=== PATIENT | male | born 1960 | race Caucasian/White ===

== ENCOUNTER 2020-10-16 16:19 | Inpatient (IN) | payer MEDICARE ==
[~2020-10-16] VITALS: Ht 165.1 cm; Wt 106.6 kg
[2020-10-16] MEDS ORDERED: MAGNESIUM HYDROXIDE 30 ML UDC PO PRN (17:00)
[2020-10-16] MEDS ORDERED: BLOOD SUGAR DIAGNOSTIC 1 EACH STRIP IN ONE (17:00)
[2020-10-16] MEDS ORDERED: TEMAZEPAM 7.5 MG CAPSULE PO PRN (17:00)
[2020-10-16] MEDS ORDERED: MAG HYDROX/AL HYDROX/SIMETH 30 ML UDC PO PRN (17:00)
[2020-10-16] MEDS ORDERED: LORAZEPAM 0.5 MG TABLET PO PRN (17:00)
[2020-10-16] MEDS ORDERED: ACETAMINOPHEN 325 MG TABLET PO PRN (17:00)
[2020-10-16] MEDS ORDERED: OLAN5TAB3 PO (17:07)
[2020-10-16] MEDS ORDERED: OLME40TA18 PO (17:07)
[2020-10-16] MEDS ORDERED: AMLO1TAB5 PO (17:07)
[2020-10-16] MEDS ORDERED: CLON1TAB12 PO (17:07)
[2020-10-16] MEDS ORDERED: METO-357 PO (17:07)
[2020-10-16] MEDS ORDERED: TAMS-12 PO (17:07)
[2020-10-16] MEDS ORDERED: GABA-532 PO (17:07)
[2020-10-16] MEDS ORDERED: EMPA25TA PO (17:07)
[2020-10-16] MEDS ORDERED: INSU100I26 SQ (17:07)
[2020-10-16] MEDS ORDERED: DULA1.5P SQ (17:07)
[2020-10-16] MEDS ORDERED: SPIR25TA6 PO (17:07)
[2020-10-16] MEDS ORDERED: GLIP10TA11 PO (17:07)
[2020-10-16] MEDS ORDERED: METF-442 PO (17:07)
[2020-10-16 17:33] VITALS: BP 113/64
--- NOTE | 2020-10-16 18:48 | NUR ---
Pt. arrived in the unit via a stretcher wheeled by ER staffs to the unit and placed on room 213 bed A. Pt. admitted on 5150 for DTS and GD. Pt. is alert/ oriented x3, contraband done, skin assessment and pictures taken and pt. signed the consent. Dr. Kent made aware of the admission and made orders. Will endorse to the incoming nurse for the completion of the admission.
--- NOTE | 2020-10-16 20:19 | NUR ---
ADMISSION NOTES: ADMITTED THIS 60Y/O MALE PATIENT DIRECT ADMIT FROM [facility] , ADMITTED TO GPS ON 5150 HOLD, PER HOLD GRAVELY DISABLE, DTS,UPON FACE TO FACE ASSESSMENT PATIENT IS A&O X ,2, 3 ,DISHELVED ,EASILY GETS AGITATED, DISORGNIZED, ,POOR HYGINE REFUSED TO TAKE SHOWER DENIES SI /HI AT THIS TIME, PT. IS POOR HISTORIAN, POOR INSIGHT ,POOR JUDGEMENT, PT. DENIES SI HI AT THIS TIME , BOTH MD AWARE AND NOTIFIED OF THE ADMISSION, BELONGINGS CONTRABAND WERE DONE , NURSING ASSESSMENT DONE ,PT. RIGHTS DISCUSS BY PRODUCT SPECIALIST , PROVIDE THE PT. WITH HANDBOOK, AND MEDICATIONS GUIDE, ENVIRONMENTAL SAFETY CHECK DONE, ENCOURAGED PT. VERBALIZED ANY FEELING CONCERN TO STAFF, ORIENT TO UNIT POLICY, NO ACUTE DISTRESS NOTED,VITAL SIGNS WNL ,DENIES ANY PAIN AT THIS TIME,WILL CONTINUE TO MONITOR FOR Q15 SAFETY AND BEHAVIOR.
[2020-10-16 20:23] VITALS: BP 132/72
[2020-10-16] MEDS ORDERED: DEXTROSE 50%-WATER 50 ML DISP.SYRIN IV PRN (22:00)
[2020-10-16] MEDS: BLOOD SUGAR DIAGNOSTIC 1 EACH STRIP IN SCH (22:25)
[2020-10-17 06:51] LABS: ALBUMIN 4.3 g/dL (3.4-5.0); BILIRUBIN,TOTAL 0.6 mg/dL (0.2-1.0); CALCIUM, SERUM 9.6 mg/dL (8.5-10.1); CREATININE 1.1 mg/dL (0.6-1.3); POTASSIUM 4.6 mmol/L (3.5-5.1); TOTAL PROTEIN, SERUM 7.6 g/dL (6.4-8.2)
[2020-10-17 06:52] LABS: CHOLESTEROL 85 mg/dL (<200); HDL CHOLESTEROL 25 mg/dL (40-60); LDL 46 mg/dL (0-99); TRIGLYCERIDES 94 mg/dL (30-150)
[2020-10-17 08:00] VITALS: BP 109/72
[2020-10-17] MEDS: BLOOD SUGAR DIAGNOSTIC 1 EACH STRIP IN SCH ×4 (08:13→22:12)
[2020-10-17] MEDS: Z GUARD REMEDY 2 OZ OINT TP SCH (08:56)
[2020-10-17] MEDS: SPIRONOLACTONE 25 MG TABLET PO SCH ×2 (08:58→17:40)
[2020-10-17] MEDS: ATORVASTATIN 40 MG TABLET PO SCH (08:59)
[2020-10-17] MEDS: METOPROLOL SUCCINATE 50 MG TAB.SR.24H PO SCH (08:59)
[2020-10-17] MEDS: GABAPENTIN 100 MG CAPSULE PO SCH ×3 (08:59→17:40)
[2020-10-17] MEDS: glipiZIDE 10 MG TABLET PO SCH ×2 (08:59→21:04)
[2020-10-17] MEDS: TAMSULOSIN 0.4 MG CAP.SR.24H PO SCH ×2 (08:59→17:40)
[2020-10-17] MEDS: AMLODIPINE BESYLATE 5 MG TABLET PO SCH (09:00)
[2020-10-17] MEDS: INSULIN GLARGINE, 100 UNIT/ML CARTRIDGE SQ SCH (10:50)
[2020-10-17 16:00] VITALS: BP 138/79
[2020-10-17] MEDS: risperiDONE 1 MG TABLET PO SCH ×2 (17:40→21:05)
[2020-10-17] MEDS: INSULIN REGULAR, HUMAN 100 UNIT/ML 3 ML VIAL SQ PRN (17:43)
[2020-10-17 20:04] VITALS: BP 100/60
[2020-10-17] MEDS: clonazePAM 0.5 MG TABLET PO SCH (21:04)
[2020-10-18] MEDS: BLOOD SUGAR DIAGNOSTIC 1 EACH STRIP IN SCH ×4 (07:44→21:21)
[2020-10-18 08:00] VITALS: BP 129/71
[2020-10-18] MEDS: ATORVASTATIN 40 MG TABLET PO SCH (08:44)
[2020-10-18] MEDS: GABAPENTIN 100 MG CAPSULE PO SCH ×3 (08:44→16:55)
[2020-10-18] MEDS: clonazePAM 0.5 MG TABLET PO SCH ×2 (08:44→20:58)
[2020-10-18] MEDS: Z GUARD REMEDY 2 OZ OINT TP SCH (08:44)
[2020-10-18] MEDS: risperiDONE 1 MG TABLET PO SCH ×2 (08:44→16:54)
[2020-10-18] MEDS: glipiZIDE 10 MG TABLET PO SCH ×2 (08:44→20:58)
[2020-10-18] MEDS: AMLODIPINE BESYLATE 5 MG TABLET PO SCH (08:45)
[2020-10-18] MEDS: TAMSULOSIN 0.4 MG CAP.SR.24H PO SCH ×2 (08:45→16:54)
[2020-10-18] MEDS: SPIRONOLACTONE 25 MG TABLET PO SCH ×2 (08:45→16:55)
[2020-10-18] MEDS: METOPROLOL SUCCINATE 50 MG TAB.SR.24H PO SCH (08:46)
[2020-10-18] MEDS: INSULIN GLARGINE, 100 UNIT/ML CARTRIDGE SQ SCH (08:47)
[2020-10-18 16:00] VITALS: BP 123/66
[2020-10-18] MEDS: Z GUARD REMEDY 2 OZ OINT TP PRN (19:46)
[2020-10-18 20:00] VITALS: BP 144/71
[2020-10-18] MEDS ORDERED: risperiDONE 1 MG TABLET PO SCH (21:00)
[2020-10-19] MEDS: BLOOD SUGAR DIAGNOSTIC 1 EACH STRIP IN SCH ×4 (07:18→21:20)
[2020-10-19] MEDS: INSULIN REGULAR, HUMAN 100 UNIT/ML 3 ML VIAL SQ PRN ×3 (07:41→21:44)
[2020-10-19 08:12] VITALS: BP 138/75
[2020-10-19] MEDS: TAMSULOSIN 0.4 MG CAP.SR.24H PO SCH ×2 (08:25→16:10)
[2020-10-19] MEDS: AMLODIPINE BESYLATE 5 MG TABLET PO SCH (08:26)
[2020-10-19] MEDS: glipiZIDE 10 MG TABLET PO SCH ×2 (08:26→21:19)
[2020-10-19] MEDS: METOPROLOL SUCCINATE 50 MG TAB.SR.24H PO SCH (08:26)
[2020-10-19] MEDS: clonazePAM 0.5 MG TABLET PO SCH ×2 (08:26→21:19)
[2020-10-19] MEDS: ATORVASTATIN 40 MG TABLET PO SCH (08:26)
[2020-10-19] MEDS: GABAPENTIN 100 MG CAPSULE PO SCH ×3 (08:26→16:10)
[2020-10-19] MEDS: risperiDONE 1 MG TABLET PO SCH ×2 (08:26→16:10)
[2020-10-19] MEDS: SPIRONOLACTONE 25 MG TABLET PO SCH ×2 (08:26→16:10)
[2020-10-19] MEDS: INSULIN GLARGINE, 100 UNIT/ML CARTRIDGE SQ SCH (08:37)
[2020-10-19] MEDS: Z GUARD REMEDY 2 OZ OINT TP SCH (08:37)
--- NOTE | 2020-10-19 09:00 | NUR ---
RN NOTE- PT QUIET THOUGH ANXIOUS AT TIMES, LOOSE ASSOCIATIONS, DENIES SI HI AT PRESENT, MED COMPLIANT NEEDS ATTENDED WITHDRAWN IN ROOM
--- NOTE | 2020-10-19 15:50 | NUR ---
Initial D/C Plan: The pt. comes from [facility] [[address] [facility] [address]; [phone]]. Per pt. he would like to return there once ready for discharge. Pt. stated he does not want any family involvement. SW will continue to collaborate with psychiatrist for safe & proper D/C planning.
--- NOTE | 2020-10-19 16:15 | NUR ---
No Point of Contact: Pt. stated he does not want any family involvement. Noted.
[2020-10-19 16:21] VITALS: BP 134/66
[2020-10-19 20:00] VITALS: BP 119/76
[2020-10-19] MEDS ORDERED: risperiDONE 1 MG TABLET PO SCH (21:00)
[2020-10-20] MEDS: BLOOD SUGAR DIAGNOSTIC 1 EACH STRIP IN SCH ×4 (07:19→21:20)
[2020-10-20 08:00] VITALS: BP 132/83
[2020-10-20] MEDS: glipiZIDE 10 MG TABLET PO SCH ×2 (08:34→21:16)
[2020-10-20] MEDS: risperiDONE 1 MG TABLET PO SCH ×3 (08:34→21:17)
[2020-10-20] MEDS: AMLODIPINE BESYLATE 5 MG TABLET PO SCH (08:34)
[2020-10-20] MEDS: TAMSULOSIN 0.4 MG CAP.SR.24H PO SCH ×2 (08:35→16:56)
[2020-10-20] MEDS: clonazePAM 0.5 MG TABLET PO SCH ×2 (08:35→21:17)
[2020-10-20] MEDS: METOPROLOL SUCCINATE 50 MG TAB.SR.24H PO SCH (08:35)
[2020-10-20] MEDS: SPIRONOLACTONE 25 MG TABLET PO SCH ×2 (08:35→16:56)
[2020-10-20] MEDS: GABAPENTIN 100 MG CAPSULE PO SCH ×3 (08:35→16:56)
[2020-10-20] MEDS: ATORVASTATIN 40 MG TABLET PO SCH (08:35)
[2020-10-20] MEDS: INSULIN REGULAR, HUMAN 100 UNIT/ML 3 ML VIAL SQ PRN ×3 (08:39→21:24)
[2020-10-20] MEDS: INSULIN GLARGINE, 100 UNIT/ML CARTRIDGE SQ SCH (08:40)
[2020-10-20] MEDS: Z GUARD REMEDY 2 OZ OINT TP SCH (08:43)
--- NOTE | 2020-10-20 09:00 | NUR ---
RN NOTE0- PT DISORGANIZED, PT HAS +AH, STATES 'I HEAR IT ALL' LAUGHING INAPPROPRIATELY, RESPONDING, , MED COMPLIANT NEEDS ATTENDED WITHDRAWN IN ROOM
--- NOTE | 2020-10-20 10:18 | NUR ---
WOUND CARE: PER RN, NO WOUND CONSULT NEEDED. CURRENT ANTONIO SCORE IS 21. WILL SEE PRN.
--- NOTE | 2020-10-20 14:06 | NUR ---
Probable Cause Hearing: Pt's 5250 has been upheld for grave disability.
[2020-10-20 16:00] VITALS: BP 146/75
--- NOTE | 2020-10-20 16:09 | NUR ---
RN NOTE- CALLED FAMILY REGARDING [employer]. STATED THEY WILL TRY TO BRING SUPPLY TO HOSPITAL.
[2020-10-20] MEDS: BENZTROPINE MESYLATE (1 MG) 1 MG TABLET PO SCH (16:56)
[2020-10-21] MEDS: BLOOD SUGAR DIAGNOSTIC 1 EACH STRIP IN SCH ×4 (07:28→21:59)
[2020-10-21] MEDS: INSULIN REGULAR, HUMAN 100 UNIT/ML 3 ML VIAL SQ PRN ×4 (07:31→21:30)
[2020-10-21] MEDS: risperiDONE 1 MG TABLET PO SCH ×3 (07:52→21:22)
[2020-10-21 08:00] VITALS: BP 125/75
[2020-10-21] MEDS: ATORVASTATIN 40 MG TABLET PO SCH (08:32)
[2020-10-21] MEDS: Z GUARD REMEDY 2 OZ OINT TP SCH (08:32)
[2020-10-21] MEDS: SPIRONOLACTONE 25 MG TABLET PO SCH ×2 (08:33→16:48)
[2020-10-21] MEDS: AMLODIPINE BESYLATE 5 MG TABLET PO SCH (08:33)
[2020-10-21] MEDS: GABAPENTIN 100 MG CAPSULE PO SCH ×3 (08:33→16:48)
[2020-10-21] MEDS: TAMSULOSIN 0.4 MG CAP.SR.24H PO SCH ×2 (08:33→16:48)
[2020-10-21] MEDS: METOPROLOL SUCCINATE 50 MG TAB.SR.24H PO SCH (08:34)
[2020-10-21] MEDS: BENZTROPINE MESYLATE (1 MG) 1 MG TABLET PO SCH ×2 (08:34→16:50)
[2020-10-21] MEDS: clonazePAM 0.5 MG TABLET PO SCH ×2 (08:35→21:22)
[2020-10-21] MEDS: glipiZIDE 10 MG TABLET PO SCH ×2 (08:35→21:23)
[2020-10-21] MEDS: INSULIN GLARGINE, 100 UNIT/ML CARTRIDGE SQ SCH (09:20)
--- NOTE | 2020-10-21 12:45 | NUR ---
D/C Planning: FLORECITA contacted [facility] [[address] [facility] [address]; [phone]] to confirm if the pt can return there upon D/C. Mae from the facility confirmed that the pt is able to return. SS will continue to f/u with this D/C plan.
[2020-10-21 16:00] VITALS: BP 137/79
--- NOTE | 2020-10-21 19:30 | NUR ---
GPS RN NOTES RECEIVED WALKING ON THE HALLWAYS WITH STEADY GAIT,ALERT,ORIENTED X2-3,ABLE TO VERBALIZED NEEDS,DENIES SI AND NO HEARING OF VOICES,MED COMPLIANT PER REPORT,WILL CONTINUE TO MONITOR BEHAVIOR
[2020-10-21 20:00] VITALS: BP 135/85
[2020-10-21 21:22] VITALS: BP 135/85
--- NOTE | 2020-10-21 21:23 | NUR ---
GPS RN NOTES SKYE MONTES WANTS SLEEP EARLY,RESTORIL 7.5MG PO GIVEN PER PATIENT REQUEST
--- NOTE | 2020-10-21 21:30 | NUR ---
GPS RN NOTES ACCU-CHECK BLOOD SUGAR CHECK 223,COVERED WITH HUMULIN R 4 UNITS PER MILD SLIDING SCALE.SNACKS PROVIDED AT BEDSIDE.
--- NOTE | 2020-10-22 00:30 | NUR ---
GPS RN NOTES SITTING ON CHAIR SLEEPING.WAS ASKED TO GO BACK TO BED BUT HE SASID LATER.
[2020-10-22 08:00] VITALS: BP 126/78
[2020-10-22] MEDS: BLOOD SUGAR DIAGNOSTIC 1 EACH STRIP IN SCH ×4 (08:19→22:05)
[2020-10-22] MEDS: INSULIN GLARGINE, 100 UNIT/ML CARTRIDGE SQ SCH (08:22)
[2020-10-22] MEDS: ATORVASTATIN 40 MG TABLET PO SCH (08:22)
[2020-10-22] MEDS: BENZTROPINE MESYLATE (1 MG) 1 MG TABLET PO SCH ×2 (08:23→16:45)
[2020-10-22] MEDS: AMLODIPINE BESYLATE 5 MG TABLET PO SCH (08:23)
[2020-10-22] MEDS: glipiZIDE 10 MG TABLET PO SCH ×2 (08:24→20:53)
[2020-10-22] MEDS: risperiDONE 1 MG TABLET PO SCH ×3 (08:24→20:53)
[2020-10-22] MEDS: METOPROLOL SUCCINATE 50 MG TAB.SR.24H PO SCH (08:25)
[2020-10-22] MEDS: TAMSULOSIN 0.4 MG CAP.SR.24H PO SCH ×2 (08:25→16:44)
[2020-10-22] MEDS: clonazePAM 0.5 MG TABLET PO SCH ×2 (08:25→20:53)
[2020-10-22] MEDS: GABAPENTIN 100 MG CAPSULE PO SCH ×3 (08:25→16:45)
[2020-10-22] MEDS: SPIRONOLACTONE 25 MG TABLET PO SCH ×2 (08:26→16:45)
[2020-10-22] MEDS: Z GUARD REMEDY 2 OZ OINT TP SCH (08:52)
[2020-10-22] MEDS: INSULIN REGULAR, HUMAN 100 UNIT/ML 3 ML VIAL SQ PRN ×4 (09:26→22:04)
[2020-10-22 16:00] VITALS: BP 145/76
--- NOTE | 2020-10-22 16:52 | NUR ---
GPS RN NOTE:RETURNED MED PULED KLONOPIN 0.5 MG AT THE WRONG TIME RETURNED 1 PILL 0.5 MG KLONOPIN Q 12 HR . WITNESS BY CHARGE NURSE JACQUES.
[2020-10-22 20:00] VITALS: BP 138/72
[2020-10-22] MEDS: Z GUARD REMEDY 2 OZ OINT TP PRN (22:06)
[2020-10-23 08:00] VITALS: BP 139/83
[2020-10-23] MEDS: BLOOD SUGAR DIAGNOSTIC 1 EACH STRIP IN SCH ×4 (08:08→21:43)
[2020-10-23] MEDS: BENZTROPINE MESYLATE (1 MG) 1 MG TABLET PO SCH ×2 (08:09→17:00)
[2020-10-23] MEDS: risperiDONE 1 MG TABLET PO SCH ×3 (08:09→20:49)
[2020-10-23] MEDS: TAMSULOSIN 0.4 MG CAP.SR.24H PO SCH ×2 (08:09→17:00)
[2020-10-23] MEDS: SPIRONOLACTONE 25 MG TABLET PO SCH ×2 (08:09→17:00)
[2020-10-23] MEDS: glipiZIDE 10 MG TABLET PO SCH ×2 (08:09→20:49)
[2020-10-23] MEDS: ATORVASTATIN 40 MG TABLET PO SCH (08:10)
[2020-10-23] MEDS: GABAPENTIN 100 MG CAPSULE PO SCH ×3 (08:10→17:05)
[2020-10-23] MEDS: METOPROLOL SUCCINATE 50 MG TAB.SR.24H PO SCH (08:10)
[2020-10-23] MEDS: AMLODIPINE BESYLATE 5 MG TABLET PO SCH (08:10)
[2020-10-23] MEDS: clonazePAM 0.5 MG TABLET PO SCH ×2 (08:13→20:48)
[2020-10-23] MEDS: Z GUARD REMEDY 2 OZ OINT TP SCH (08:19)
[2020-10-23] MEDS: INSULIN GLARGINE, 100 UNIT/ML CARTRIDGE SQ SCH (09:21)
[2020-10-23] MEDS: INSULIN REGULAR, HUMAN 100 UNIT/ML 3 ML VIAL SQ PRN ×4 (09:22→21:47)
--- NOTE | 2020-10-23 09:48 | NUR ---
RN OPENING NOTE RECEIVED PATIENT RESTING HIS ROOM, NO ACUTE DISTRESS NOTED. DISHELVED UNKEMPT,PARANOID HEARING VOICE WITHDRAWN, DENIES SI HI AT THIS TIME . NO VERBALIZATION OF THOUGHTS AND FEELINGS. COOPERTIVE, VERBALIZATION OF FEELINGS ENCOURAGED. MED COMPLIANT SAFETY PRECAUTIONS IN PLACE. WILL CONTINUE TO MONITOR
[2020-10-23 16:00] VITALS: BP 142/78
--- NOTE | 2020-10-23 18:05 | NUR ---
RN CLOSING NOTE PT RESTING IN BED COMFORTABLY. COOPERATIVE AND DEPRESSED. ANXIOUS IN PERIODS. AVH PRESENT. DENIES ANY SI/HI. MED COMPLIANT. SAFETY PRECAUTIONS IN PLACE. Q15 MINUTE CHECKS SIGNED. WILL GIVE REPORT TO NIGHT NURSE FOR LORAINE.
--- NOTE | 2020-10-23 18:17 | NUR ---
RN NOTE RECIEVED CALL FROM PT ELVIS GIBBS
[2020-10-23 20:33] VITALS: BP 119/66
[2020-10-24 08:00] VITALS: BP 138/71
[2020-10-24] MEDS: clonazePAM 0.5 MG TABLET PO SCH ×2 (08:34→21:00)
[2020-10-24] MEDS: BLOOD SUGAR DIAGNOSTIC 1 EACH STRIP IN SCH ×4 (08:34→21:49)
[2020-10-24] MEDS: AMLODIPINE BESYLATE 5 MG TABLET PO SCH (08:35)
[2020-10-24] MEDS: METOPROLOL SUCCINATE 50 MG TAB.SR.24H PO SCH (08:35)
[2020-10-24] MEDS: glipiZIDE 10 MG TABLET PO SCH ×2 (08:36→20:59)
[2020-10-24] MEDS: SPIRONOLACTONE 25 MG TABLET PO SCH ×2 (08:36→16:35)
[2020-10-24] MEDS: GABAPENTIN 100 MG CAPSULE PO SCH ×3 (08:36→16:35)
[2020-10-24] MEDS: TAMSULOSIN 0.4 MG CAP.SR.24H PO SCH ×2 (08:36→16:35)
[2020-10-24] MEDS: ATORVASTATIN 40 MG TABLET PO SCH (08:36)
[2020-10-24] MEDS: BENZTROPINE MESYLATE (1 MG) 1 MG TABLET PO SCH ×2 (08:36→16:35)
[2020-10-24] MEDS: risperiDONE 1 MG TABLET PO SCH ×3 (08:36→21:00)
[2020-10-24] MEDS: INSULIN GLARGINE, 100 UNIT/ML CARTRIDGE SQ SCH (08:40)
[2020-10-24] MEDS: Z GUARD REMEDY 2 OZ OINT TP SCH (08:40)
[2020-10-24] MEDS: INSULIN REGULAR, HUMAN 100 UNIT/ML 3 ML VIAL SQ PRN ×4 (08:47→21:52)
[2020-10-24 16:00] VITALS: BP 114/81
[2020-10-24 20:00] VITALS: BP 133/80
[2020-10-24 20:19] VITALS: BP 133/80
--- NOTE | 2020-10-24 21:54 | NUR ---
rn notes: blood sugar checked-243, insulin given per scale, he ate some snack, will continue to monitor for any sign of hyper/hypoglycemia.
--- NOTE | 2020-10-25 00:22 | NUR ---
RN NOTES: AWAKE IN BETWEEN, NEEDS ATTENDED, GIVEN SNACKS, AFTER THAT HE WENT BACK TO HIS ROOM AND SLEEP, KEPT ON CLOSE WATCH.
[2020-10-25] MEDS: BLOOD SUGAR DIAGNOSTIC 1 EACH STRIP IN SCH ×4 (07:54→21:25)
[2020-10-25] MEDS: INSULIN REGULAR, HUMAN 100 UNIT/ML 3 ML VIAL SQ PRN ×4 (07:57→21:25)
[2020-10-25 08:00] VITALS: BP_SYST 119; BP_SYST 150; BP_DIAS 69; BP_DIAS 76
[2020-10-25] MEDS: INSULIN GLARGINE, 100 UNIT/ML CARTRIDGE SQ SCH (08:01)
[2020-10-25] MEDS: GABAPENTIN 100 MG CAPSULE PO SCH ×3 (08:30→16:38)
[2020-10-25] MEDS: ATORVASTATIN 40 MG TABLET PO SCH (08:30)
[2020-10-25] MEDS: AMLODIPINE BESYLATE 5 MG TABLET PO SCH (08:30)
[2020-10-25] MEDS: SPIRONOLACTONE 25 MG TABLET PO SCH ×2 (08:31→16:39)
[2020-10-25] MEDS: glipiZIDE 10 MG TABLET PO SCH ×2 (08:31→21:08)
[2020-10-25] MEDS: TAMSULOSIN 0.4 MG CAP.SR.24H PO SCH ×2 (08:31→16:38)
[2020-10-25] MEDS: risperiDONE 1 MG TABLET PO SCH ×3 (08:31→21:08)
[2020-10-25] MEDS: BENZTROPINE MESYLATE (1 MG) 1 MG TABLET PO SCH ×2 (08:31→16:38)
[2020-10-25] MEDS: clonazePAM 0.5 MG TABLET PO SCH ×2 (08:32→21:08)
[2020-10-25] MEDS: METOPROLOL SUCCINATE 50 MG TAB.SR.24H PO SCH (08:32)
[2020-10-25] MEDS: Z GUARD REMEDY 2 OZ OINT TP SCH (08:33)
[2020-10-25 16:00] VITALS: BP 122/77
[2020-10-25 20:25] VITALS: BP 120/86
[2020-10-26 07:01] LABS: BASOPHILS % (AUTO) 0.3 % (0.0-2.0); EOSINOPHILS % (AUTO) 4.1 % (0.0-6.0); HEMATOCRIT 41 % (39-51); HEMOGLOBIN 13.5 g/dL (13.5-17.5); MEAN CORPUSCULAR HGB CONC 33 g/dl (31.0-36.0); MEAN CORPUSCULAR VOLUME 89 fL (80-96); MONOCYTES # (AUTO) 1.3 K/uL (0.1-1.30); MONOCYTES % (AUTO) 10.4 % (2.0-12.0); NEUTROPHILS # (AUTO) 8.6 K/uL (1.8-8.9); NEUTROPHILS % (AUTO) 69.2 % (43.0-81.0); PLATELET COUNT (AUTO) 228 K/uL (150-450); RED BLOOD CELL COUNT(AUTO) 4.59 MIL/uL (4.5-6.0); WHITE BLOOD COUNT (AUTO) 12.4 K/uL (4.3-11.0)
[2020-10-26] MEDS: INSULIN REGULAR, HUMAN 100 UNIT/ML 3 ML VIAL SQ PRN ×4 (07:16→22:05)
[2020-10-26] MEDS: BLOOD SUGAR DIAGNOSTIC 1 EACH STRIP IN SCH ×4 (07:17→21:58)
[2020-10-26 07:36] LABS: CREATININE 0.9 mg/dL (0.6-1.3); POTASSIUM 4.5 mmol/L (3.5-5.1)
[2020-10-26 08:00] VITALS: BP 125/80
[2020-10-26 08:09] LABS: CALCIUM, SERUM 9.6 mg/dL (8.5-10.1)
[2020-10-26] MEDS: TAMSULOSIN 0.4 MG CAP.SR.24H PO SCH ×2 (08:20→16:47)
[2020-10-26] MEDS: ATORVASTATIN 40 MG TABLET PO SCH (08:20)
[2020-10-26] MEDS: risperiDONE 1 MG TABLET PO SCH ×3 (08:20→21:40)
[2020-10-26] MEDS: GABAPENTIN 100 MG CAPSULE PO SCH ×3 (08:20→16:46)
[2020-10-26] MEDS: glipiZIDE 10 MG TABLET PO SCH ×2 (08:20→21:40)
[2020-10-26] MEDS: BENZTROPINE MESYLATE (1 MG) 1 MG TABLET PO SCH ×2 (08:20→16:47)
[2020-10-26] MEDS: SPIRONOLACTONE 25 MG TABLET PO SCH ×2 (08:22→16:47)
[2020-10-26] MEDS: METOPROLOL SUCCINATE 50 MG TAB.SR.24H PO SCH (08:23)
[2020-10-26] MEDS: clonazePAM 0.5 MG TABLET PO SCH (08:23)
[2020-10-26] MEDS: AMLODIPINE BESYLATE 5 MG TABLET PO SCH (08:23)
[2020-10-26] MEDS: Z GUARD REMEDY 2 OZ OINT TP SCH (08:24)
[2020-10-26] MEDS: INSULIN GLARGINE, 100 UNIT/ML CARTRIDGE SQ SCH (08:25)
[2020-10-26 16:00] VITALS: BP 122/76
--- NOTE | 2020-10-27 07:05 | NUR ---
GPS RN CLOSING NOTES: PATIENT IS SITTING IN HALLWAY, AWAKE A/O X2. PATIENT HAS NO S/S OF DISTRESS. RESPIRATION EVEN AND UNLABORED WITH EQUAL RISE AND FALL OF THE CHEST, ON ROOM AIR. ALL PATIENT CARE NEEDS HAVE BEEN MET ANTICIPATED. WILL CONTINUE TO MONITOR AND ENDORSE TO AM SHIFT.
[2020-10-27] MEDS: BLOOD SUGAR DIAGNOSTIC 1 EACH STRIP IN SCH ×4 (07:24→22:01)
[2020-10-27] MEDS: INSULIN REGULAR, HUMAN 100 UNIT/ML 3 ML VIAL SQ PRN ×4 (07:39→22:00)
[2020-10-27] MEDS: risperiDONE 1 MG TABLET PO SCH ×3 (07:44→20:31)
[2020-10-27 08:00] VITALS: BP 140/88
[2020-10-27] MEDS ORDERED: clonazePAM 0.5 MG TABLET PO SCH (08:00)
[2020-10-27] MEDS: Z GUARD REMEDY 2 OZ OINT TP SCH (08:15)
[2020-10-27] MEDS: INSULIN GLARGINE, 100 UNIT/ML CARTRIDGE SQ SCH (08:21)
[2020-10-27] MEDS: TAMSULOSIN 0.4 MG CAP.SR.24H PO SCH ×2 (08:26→16:34)
[2020-10-27] MEDS: ATORVASTATIN 40 MG TABLET PO SCH (08:27)
[2020-10-27] MEDS: BENZTROPINE MESYLATE (1 MG) 1 MG TABLET PO SCH ×2 (08:27→16:34)
[2020-10-27] MEDS: SPIRONOLACTONE 25 MG TABLET PO SCH ×2 (08:27→16:34)
[2020-10-27] MEDS: METOPROLOL SUCCINATE 50 MG TAB.SR.24H PO SCH (08:28)
[2020-10-27] MEDS: GABAPENTIN 100 MG CAPSULE PO SCH ×3 (08:28→16:33)
[2020-10-27] MEDS: AMLODIPINE BESYLATE 5 MG TABLET PO SCH (08:29)
[2020-10-27] MEDS: glipiZIDE 10 MG TABLET PO SCH ×2 (08:29→20:30)
[2020-10-27 16:00] VITALS: BP 122/75
--- NOTE | 2020-10-27 22:05 | NUR ---
RN NOTE - PATIENT COMPLAINED OF CONSTIPATION. M.O.M GIVEN PER PATIENT'S REQUEST. WILL CONTINUE TO MONITOR FOR EFFECTIVENESS.
[2020-10-28] MEDS: Z GUARD REMEDY 2 OZ OINT TP PRN (03:32)
--- NOTE | 2020-10-28 03:33 | NUR ---
RN NOTES : MOM EFFECTIVE , PT. REPORTED BM X1 , DENIES ANY DISCOMFORT ,WILL CONTINUE WITH CARE.
[2020-10-28] MEDS: BLOOD SUGAR DIAGNOSTIC 1 EACH STRIP IN SCH ×4 (07:43→20:37)
[2020-10-28] MEDS: INSULIN REGULAR, HUMAN 100 UNIT/ML 3 ML VIAL SQ PRN ×4 (07:44→20:36)
[2020-10-28 08:00] VITALS: BP 150/78
[2020-10-28] MEDS: risperiDONE 1 MG TABLET PO SCH ×3 (08:22→20:35)
[2020-10-28] MEDS: glipiZIDE 10 MG TABLET PO SCH ×2 (08:27→20:35)
[2020-10-28] MEDS: BENZTROPINE MESYLATE (1 MG) 1 MG TABLET PO SCH ×2 (08:28→16:56)
[2020-10-28] MEDS: TAMSULOSIN 0.4 MG CAP.SR.24H PO SCH ×2 (08:28→16:57)
[2020-10-28] MEDS: AMLODIPINE BESYLATE 5 MG TABLET PO SCH (08:29)
[2020-10-28] MEDS: GABAPENTIN 100 MG CAPSULE PO SCH ×3 (08:29→16:56)
[2020-10-28] MEDS: METOPROLOL SUCCINATE 50 MG TAB.SR.24H PO SCH (08:29)
[2020-10-28] MEDS: SPIRONOLACTONE 25 MG TABLET PO SCH ×2 (08:29→16:57)
[2020-10-28] MEDS: ATORVASTATIN 40 MG TABLET PO SCH (08:29)
[2020-10-28] MEDS: Z GUARD REMEDY 2 OZ OINT TP SCH (08:30)
[2020-10-28] MEDS: INSULIN GLARGINE, 100 UNIT/ML CARTRIDGE SQ SCH (08:38)
[2020-10-28 16:00] VITALS: BP 138/80
[2020-10-28 20:45] VITALS: BP 108/37
[2020-10-29] MEDS: BLOOD SUGAR DIAGNOSTIC 1 EACH STRIP IN SCH ×4 (07:47→22:04)
[2020-10-29] MEDS: INSULIN REGULAR, HUMAN 100 UNIT/ML 3 ML VIAL SQ PRN ×4 (07:51→21:53)
[2020-10-29 08:00] VITALS: BP 132/89
[2020-10-29] MEDS: TAMSULOSIN 0.4 MG CAP.SR.24H PO SCH ×2 (08:16→16:14)
[2020-10-29] MEDS: risperiDONE 1 MG TABLET PO SCH ×3 (08:16→21:19)
[2020-10-29] MEDS: GABAPENTIN 100 MG CAPSULE PO SCH ×3 (08:16→16:14)
[2020-10-29] MEDS: BENZTROPINE MESYLATE (1 MG) 1 MG TABLET PO SCH ×2 (08:16→16:14)
[2020-10-29] MEDS: ATORVASTATIN 40 MG TABLET PO SCH (08:17)
[2020-10-29] MEDS: AMLODIPINE BESYLATE 5 MG TABLET PO SCH (08:17)
[2020-10-29] MEDS: glipiZIDE 10 MG TABLET PO SCH ×2 (08:17→21:18)
[2020-10-29] MEDS: METOPROLOL SUCCINATE 50 MG TAB.SR.24H PO SCH (08:17)
[2020-10-29] MEDS: SPIRONOLACTONE 25 MG TABLET PO SCH ×2 (08:17→16:14)
[2020-10-29] MEDS: INSULIN GLARGINE, 100 UNIT/ML CARTRIDGE SQ SCH (09:24)
[2020-10-29] MEDS: Z GUARD REMEDY 2 OZ OINT TP SCH (09:47)
[2020-10-29 16:00] VITALS: BP 126/82
[2020-10-29 20:57] VITALS: BP 134/76
[2020-10-29 22:23] VITALS: BP 134/76
[2020-10-30] MEDS: BLOOD SUGAR DIAGNOSTIC 1 EACH STRIP IN SCH (07:43)
[2020-10-30] MEDS: Z GUARD REMEDY 2 OZ OINT TP SCH (07:44)
[2020-10-30] MEDS: risperiDONE 1 MG TABLET PO SCH (07:54)
[2020-10-30] MEDS: glipiZIDE 10 MG TABLET PO SCH (07:54)
[2020-10-30] MEDS: TAMSULOSIN 0.4 MG CAP.SR.24H PO SCH (07:54)
[2020-10-30] MEDS: BENZTROPINE MESYLATE (1 MG) 1 MG TABLET PO SCH (07:54)
[2020-10-30] MEDS: GABAPENTIN 100 MG CAPSULE PO SCH (07:54)
[2020-10-30] MEDS: ATORVASTATIN 40 MG TABLET PO SCH (07:55)
[2020-10-30] MEDS: METOPROLOL SUCCINATE 50 MG TAB.SR.24H PO SCH (07:55)
[2020-10-30] MEDS: AMLODIPINE BESYLATE 5 MG TABLET PO SCH (07:55)
[2020-10-30] MEDS: SPIRONOLACTONE 25 MG TABLET PO SCH (07:56)
[2020-10-30] MEDS: INSULIN REGULAR, HUMAN 100 UNIT/ML 3 ML VIAL SQ PRN (07:57)
[2020-10-30] MEDS: INSULIN GLARGINE, 100 UNIT/ML CARTRIDGE SQ SCH (07:58)
[2020-10-30 08:00] VITALS: BP 146/81
--- NOTE | 2020-10-30 09:06 | NUR ---
Dr. Kent gave an order to D/C hold and D/C to [facility] and to follow up with psych and medical doctors.
--- NOTE | 2020-10-30 11:15 | NUR ---
GPS/RN PT DISCHARGED TO [facility] VIA TAXI. TAXI VOUCHER PROVIDED. PRESCRIPTION FAXED TO FACILITY PRIOR TO D/C REQUESTED.NO SI OR HI AT THE TIME OF DISCHARGE. PROPERTY RETURNED. PT WAS PROVIDED WITH CLOTHING FROM [employer]. VSS. PT IS AMBULATORY A/O X4. REFUSED PICTURES ON DISCHARGE.
--- NOTE | 2020-10-30 11:20 | NUR ---
SS Discharge Note Pt was discharged to [facility] [[address] [facility] [address]; [phone]]. Pt was transported via taxi at around 11 AM. Pt has no point of contact. Upon discharge, the pt appeared to be in a euthymic mood and presented with an anxious affect. Pt denied suicidal and homicidal ideation as well as auditory and visual hallucinations. Pt will be under the care of psychiatrist Dr. Raad Tsang located at [address] [facility] [address] [address]; and education program specialist, Dr. Rivera Nair located at [address], [place] [address]; . The choice of vendor form and multidisciplinary exit care form were done, printed, signed, and given to the patient.
== END 2020-10-30 11:15 | DRG 885 ==
LOC: GPS 16:19
PROVIDERS: ADMIT Psychiatry & Neurology Psychosomatic Medicine; ATTEND Family Medicine
DX: F25.0 Schizoaffective disorder, bipolar type (principal); E11.65 Type 2 diabetes mellitus with hyperglycemia; K51.90 Ulcerative colitis, unspecified, without complications; I10 Essential (primary) hypertension; E66.9 Obesity, unspecified; E78.5 Hyperlipidemia, unspecified; N41.1 Chronic prostatitis; F29 Unspecified psychosis not due to a substance or known physiological condition; Z73.6 Limitation of activities due to disability; Z87.19 Personal history of other diseases of the digestive system; Z68.39 Body mass index [BMI] 39.0-39.9, adult; G31.84 Mild cognitive impairment of uncertain or unknown etiology
CPT/HCPCS: 36415; 80048-TC; 80053-TC; 80061-TC; 82962-TC; 85025-TC; 87081-TC; J1815